=== PATIENT | female | born 1960 | race African-American/Black ===

== ENCOUNTER 2017-12-31 15:13 | Emergency (ER) | payer SELFPAY ==
[2017-12-31 15:38] LABS: Bilirubin Negative (Negative); Blood, Urine Large (Negative); Clarity CLOUDY (Clear); Glucose, Urine (Dipstick) Negative (Negative); Leukocyte Large (Negative); Nitrite Negative (Negative); Protein, Urine (Dipstick) 30 mg/dL (Neg-Trace); Specific Gravity, Urine 1.004 (1.002-1.036); Urobilinogen 0.2 mg/dL (0.2-1.0)
[2017-12-31 15:41] LABS: Pathc Cast-AUWi Flag 0.72 (0-2.49)
[2017-12-31 15:53] LABS: Bacteria/HPF 1+ HPF (None Seen); Hyaline Casts/LPF 0-3 HYALINE CAST LPF (0-3 Hyaline); RBC/HPF 0-3 HPF (0-3); Squamous Epithelial 0-3 HPF (0-3); WBC/HPF 21-50 HPF (0-3)
== END 2017-12-31 16:46 | disposition home or self-care (01) ==
LOC: ERS 15:13
DX: N30.01 Acute cystitis with hematuria (principal)
CPT/HCPCS: 81003; 81015; 99284